=== PATIENT | male | born 1950 | race Caucasian/White ===

== ENCOUNTER 2019-09-30 08:36 | Inpatient (IN) | payer MEDICARE ==
[~2019-09-30] VITALS: Ht 170.2 cm; Wt 118.8 kg
[2019-09-30 09:15] VITALS: BP 104/67
--- NOTE | 2019-09-30 09:31 | NUR ---
IP: Pt's adm dx is C.diff requiring pt to be in contact plus precautions. Stool specimen will need to be sent in first 48 hours for testing.
[2019-09-30] MEDS: IV NORMAL SALINE 1000ML BAG 1,000 ML IV SCH ×3 (10:03→23:40)
[2019-09-30] MEDS: VANCOMYCIN 125 MG/2.5 ML ORAL SOLUTION. PO SCH ×4 (10:40→20:49)
[2019-09-30 10:55] LABS: BASO % 0 % (0-3); EOS # 0.1 x10^3/uL (0.0-0.7); EOS % 1 % (0-3); HEMATOCRIT 37.1 % (39.0-53.0); HEMOGLOBIN 12.6 g/dL (13.0-17.5); LYMPH # 1.9 x10^3/uL (1.0-4.8); LYMPH % 16 % (24-48); MEAN CORPUSCULAR HEMOGLOBIN 31 pg (25-35); MEAN CORPUSCULAR HGB CONC 34 g/dL (31-37); MEAN CORPUSCULAR VOLUME 90 fL (79-100); MONO # 1.5 x10^3/uL (0.0-1.1); MONO % 12 % (0-9); NEUT # 8.7 x10^3/uL (1.8-7.7); NEUT % 71 % (31-73); PLATELET COUNT 305 x10^3/uL (140-400); RED CELL DISTRIBUTION WIDTH 13.5 % (11.5-14.5); WHITE BLOOD COUNT 12.3 x10^3/uL (4.0-11.0)
[2019-09-30 11:10] LABS: ALBUMIN/GLOBULIN RATIO 0.8 (1.0-1.7); CALCIUM 9.3 mg/dL (8.5-10.1); CREATININE 9.1 mg/dL (0.7-1.3); GFR 5.8; TOTAL BILIRUBIN 0.2 mg/dL (0.2-1.0)
[2019-09-30 12:16] LABS: % BANDS 6 % (0-9); % BASOS 1 % (0-3); % EOS 1 % (0-5); % LYMPHS 17 % (24-48); % METAS 2 % (0-0); % MONOS 9 % (0-10); % MYELOS 3 % (0-0); % SEGS 61 % (35-66); PLT ESTIMATE ADEQUATE (ADEQUATE)
--- NOTE | 2019-09-30 12:42 | PDOC1 ---
H & P. HPI: Mr. Meraz is a 69 yo male with PMH of HTN, hx of CVA, CKD stage 3 (baseline Cr ~2.1), h/o iron deficiency anemia, anxiety, who was admitted directly this morning after labs were received that showed Cr of 8.04, GFR 6, BUN 97, Na 132, K 4.4, WBC 15.6, Hgb 12.7, Hct 37.9, with left shift. He was seen in clinic yesterday afternoon for diarrhea for the last few weeks. He reported that he took an antibiotic TID for 10 days (unsure the name) for a dental infection scottie y 09/22 (may have been clindamycin), completed abx over 2 weeks ago. He started having diarrhea a few days into treatment and hasn't improved. Has been having multiple stools a day, often >5-10+ per day. He denied hematochezia, melena. His blood pressure in clinic yesterday was 70/50. We discussed yesterday for direct admission, but pt declined. Given concern for likely Cdiff and severe hypotension, he got labs yesterday and started metronidazole and stopped all blood pressure meds last night with plan to follow up in clinic today, but was called for direct admission once labs were received. ROS: Constitutional: Denies fever, chills; denies fatigue HEENT: Denies sore throat, vision changes Cardio: Denies chest pain, dyspnea with exertion, presyncope, palpitations, edema Pulmonary: Denies shortness of breath, cough, wheezing GI: Admits diarrhea; denies abdominal pain : Denies dysuria, frequency, urgency, incontinence Skin: Denies new lesions Neuro: Denies weakness, paresthesias PMH: As above FAMILY HX: Noncontributory SOCIAL HX: Quit smoking at age 42, smoked ~2 cigars/day age [age], no significant alcohol use or drug use MEDS: Reviewed and reconciled ALLERGIES: Reviewed PE: Alert, oriented, no acute distress, appears weak EOMI, sclera non-icteric Neck supple RRR, no murmur CTAB, no wheezes, crackles or rhonchi Soft, NT, ND No edema, cyanosis. Normal capillary refill. Calm, cooperative, mood/affect within normal limits ASSESSMENT & PLAN: Acute renal failure on CKD stage 3 (baseline ~2.1) 2/2 hypotension Severe Cdiff, pending PCR result to confirm Hypotension, 2/2 volume loss, holding all antihypertensives Anemia, pt has previously refused EGD/Colonoscopy to eval IV fluids Nephro consult to consider dialysis PO Vanc for C diff Contact precautions DNR per pt request TODD EBAN MD Sep 30, 2019 12:42
--- NOTE | 2019-09-30 13:44 | RAD ---
EXAM: Renal cyst. HISTORY: Renal insufficiency. TECHNIQUE: Sonographic imaging of the kidneys and bladder was performed. COMPARISON: None. FINDINGS: The right kidney measures 11.9 cm [id number]. The left kidney measures 11.6 cm [id number]. No hydronephrosis is seen. There are simple appearing renal cysts measuring 8.4 cm of the right and 3.5 cm on the left. No solid renal lesion is seen. There is echogenic right renal parenchyma. The prostate is enlarged, with a volume of 35 cc. The bladder is unremarkable. IMPRESSION: 1. Simple appearing renal cysts measuring 8.4 cm of the right and 3.5 cm on the left. 2. Echogenic right renal parenchymal blood. This may be due to imaging technique or medical renal disease. No solid renal lesion is seen. There is no hydronephrosis. 3. Mild prostatomegaly. Electronically signed by: Cordelia Arellano MD (09/30/2019 1:41 PM) [facility] [place]
[2019-09-30 15:00] VITALS: BP 110/56
[2019-09-30 15:19] LABS: BILIRUBIN,URINE NEGATIVE (NEG); CLARITY,URINE CLEAR; COLOR,URINE YELLOW; NITRITE,URINE NEGATIVE (NEG); PROTEIN,URINE NEGATIVE (NEG-TRACE); UROBILINOGEN,URINE 0.2 mg/dL (0.2 mg/dL)
[2019-09-30 15:32] LABS: SQUAMOUS EPITHELIAL CELL,UR OCC /LPF
[2019-09-30 15:33] LABS: BACTERIA,URINE FEW /HPF (0-FEW); WBC,URINE OCC /HPF (0-4)
[2019-09-30] MEDS ORDERED: LISI-334 PO (16:46)
[2019-09-30] MEDS ORDERED: ISOS60TA2 PO (16:48)
[2019-09-30] MEDS ORDERED: ESCITALOPRAM OX10 MG PO (16:48)
[2019-09-30] MEDS ORDERED: AMLO10TA8 PO (16:49)
[2019-09-30] MEDS ORDERED: SPIR25TA5 PO (16:50)
[2019-09-30] MEDS ORDERED: HYDR25TA10 PO (16:51)
[2019-09-30] MEDS ORDERED: CARV25TA2 PO (16:52)
[2019-09-30 19:30] VITALS: BP 125/68
[2019-09-30 23:55] VITALS: BP 134/69
[2019-10-01 03:51] VITALS: BP 133/92
[2019-10-01 04:57] LABS: BASO # 0.1 x10^3/uL (0.0-0.2); BASO % 0 % (0-3); EOS # 0.1 x10^3/uL (0.0-0.7); EOS % 1 % (0-3); HEMATOCRIT 35.9 % (39.0-53.0); HEMOGLOBIN 12.2 g/dL (13.0-17.5); LYMPH # 1.4 x10^3/uL (1.0-4.8); LYMPH % 10 % (24-48); MEAN CORPUSCULAR HEMOGLOBIN 31 pg (25-35); MEAN CORPUSCULAR HGB CONC 34 g/dL (31-37); MEAN CORPUSCULAR VOLUME 91 fL (79-100); MONO # 1.1 x10^3/uL (0.0-1.1); MONO % 8 % (0-9); NEUT # 11.3 x10^3/uL (1.8-7.7); NEUT % 81 % (31-73); PLATELET COUNT 319 x10^3/uL (140-400); RED BLOOD COUNT 3.96 x10^6/uL (4.30-5.70); RED CELL DISTRIBUTION WIDTH 13.8 % (11.5-14.5)
[2019-10-01 05:32] LABS: ALBUMIN/GLOBULIN RATIO 0.8 (1.0-1.7); CREATININE 5.7 mg/dL (0.7-1.3); POTASSIUM 4.4 mmol/L (3.5-5.1); TOTAL BILIRUBIN 0.2 mg/dL (0.2-1.0); TOTAL PROTEIN 6.8 g/dL (6.4-8.2)
[2019-10-01 07:15] VITALS: BP 136/65
[2019-10-01] MEDS: VANCOMYCIN 125 MG/2.5 ML ORAL SOLUTION. PO SCH ×4 (08:19→21:52)
[2019-10-01] MEDS: IV NORMAL SALINE 1000ML BAG 1,000 ML IV SCH ×2 (08:19→17:38)
--- NOTE | 2019-10-01 09:16 | PDOC ---
Provider Note Provider Note bp better re iv saline, diarrhea less on vanco- better output- creat down to 5.7, last baseline 2.4 08/21- renal sono ok- renal consult pending as may need temp dialysis- daily lab MARIKA FAYE MD Oct 01, 2019 09:16
[2019-10-01 10:53] VITALS: BP 131/71
--- NOTE | 2019-10-01 11:03 | PDOC2 ---
CONSULT Date of Consult Date of Consult DATE: 10/01/19 TIME: 10:57 Reason for Consult Reason for Consult: YUKI Referring Physician Referring Physician: TRUSTY Identification/Chief Complaint Chief Complaint WEAKNESS AND DIARRHEA Source Source: Chart review, Patient History of Present Illness Reason for Visit: THIS IS A 69 YR OLD WITH CKD AND BASELINE CR OF 2.0. HAS HX OF HTN. HAS BEEN HAVING SOME SEVERE DIARRHEA FOR COUPLE WEEKS AFTER TAKING SOME ANTIBIOTICS POST DENTAL PROCEDURE. OP LABS SHOWED YUKI WITH CR OF 8.0 AND LEUCOCYTOSIS AND PT WAS ASKED TO COME TO THE HOSPITAL. LABS HERE SHOWED A CR OF 9.0. DENIED ANY NSAIDS OF NEPHROTOXINS. NO OTHER HX. HAS HAD HYPOTENSION IN THE OP SETTING WITH BP OF 70/50. NOTE FROM ATTENDING REVIEWED. Mr. Meraz is a 69 yo male with PMH of HTN, hx of CVA, CKD stage 3 (baseline Cr ~2.1), h/o iron deficiency anemia, anxiety, who was admitted directly this morning after labs were received that showed Cr of 8.04, GFR 6, BUN 97, Na 132, K 4.4, WBC 15.6, Hgb 12.7, Hct 37.9, with left shift. He was seen in clinic yesterday afternoon for diarrhea for the last few weeks. He reported that he took an antibiotic TID for 10 days (unsure the name) for a dental infection early 09/22 (may have been clindamycin), completed abx over 2 weeks ago. He started having diarrhea a few days into treatment and hasn't improved. Has been having multiple stools a day, often >5-10+ per day. He denied hematochezia, melena. His blood pressure in clinic yesterday was 70/50. We discussed yesterday for direct admission, but pt declined. Given concern for likely Cdiff and severe hypotension, he got labs yesterday and started metronidazole and stopped all blood pressure meds last night with plan to follow up in clinic today, but was called for direct admission once labs were received. Past Medical History Cardiovascular: HTN CENTRAL NERVOUS SYSTEM: CVA Renal/: Chronic renal insuff Family History Family History: Hypertension Social History No ALCOHOL: none Drugs: None Lives: with Family Current Medications Current Medications Current Medications Sodium Chloride 1,000 ml @ 100 mls/hr Q10H IV Last administered on 10/01/19at 08:19; Start 09/30/19 at 10:00 Vancomycin HCl (Vancomycin Oral Solution) 125 mg [id number] PO Last administered on 10/01/19at 08:19; Start 09/30/19 at 10:00 Active Scripts Active Reported Carvedilol 25 Mg Tablet 25 Mg PO BIDWMEALS PRN Hydrochlorothiazide 25 Mg Tablet 25 Mg PO DAILY Spironolactone 25 Mg Tablet 1 Tab PO DAILY Amlodipine Besylate 10 Mg Tablet 10 Mg PO DAILY Escitalopram Oxalate 10 Mg Tablet 1 Tab PO DAILY Isosorbide Mononitrate Er (Isosorbide Mononitrate) 60 Mg Tab.er.24h 2 Tab PO DAILY Lisinopril 20 Mg Tablet 1 Tab PO DAILY Allergies Allergies: Coded Allergies: Penicillins (Verified Allergy, Unknown, Hives, 09/30/19) ROS General: YES: Fatigue, Malaise, Appetite PSYCHOLOGICAL ROS: YES: Anxiety Eyes: Yes Decreased vision HEENT: YES: Heacaches ALLERGY AND IMMUNOLOGY: YES: Seasonal Allergies Respiratory: YES: Cough Gastrointestinal: Yes Diarrhea Genitourinary: YES Other (DECREASED UO) Musculoskeletal: Yes Muscular Weakness Neurological: Yes Dizziness Skin: Yes Dry Skin Physical Exam General: Alert, Oriented X3, Cooperative, No acute distress HEENT: Atraumatic Lungs: Clear to auscultation Heart: Regular rate, Normal S1, No murmurs Abdomen: Normal bowel sounds, Soft, No tenderness Extremities: No edema Skin: No breakdown Neuro: Normal speech, Sensation intact Psych/Mental Status: Mental status NL, Mood NL MUSCULOSKELETAL: No joint tenderness, No deformity, No swelling Vitals VITALS Vital Signs Date Time Temp Pulse Resp B/P (MAP) Pulse Ox O2 Delivery O2 Flow Rate FiO2 10/01/19 10:53 98.5 74 20 131/71 (91) 98 Room Air 98.5 Labs Labs Laboratory Tests Test 09/30/19 10:23 09/30/19 15:00 10/01/19 04:00 White Blood Count 12.3 x10^3/uL (4.0-11.0) 14.0 x10^3/uL (4.0-11.0) Red Blood Count 4.10 x10^6/uL (4.30-5.70) 3.96 x10^6/uL (4.30-5.70) Hemoglobin 12.6 g/dL (13.0-17.5) 12.2 g/dL (13.0-17.5) Hematocrit 37.1 % (39.0-53.0) 35.9 % (39.0-53.0) Mean Corpuscular Volume 90 fL (79-100) 91 fL (79-100) Mean Corpuscular Hemoglobin 31 pg (25-35) 31 pg (25-35) Mean Corpuscular Hemoglobin Concent 34 g/dL (31-37) 34 g/dL (31-37) Red Cell Distribution Width 13.5 % (11.5-14.5) 13.8 % (11.5-14.5) Platelet Count 305 x10^3/uL (140-400) 319 x10^3/uL (140-400) Neutrophils (%) (Auto) 71 % (31-73) 81 % (31-73) Lymphocytes (%) (Auto) 16 % (24-48) 10 % (24-48) Monocytes (%) (Auto) 12 % (0-9) 8 % (0-9) Eosinophils (%) (Auto) 1 % (0-3) 1 % (0-3) Basophils (%) (Auto) 0 % (0-3) 0 % (0-3) Neutrophils # (Auto) 8.7 x10^3/uL (1.8-7.7) 11.3 x10^3/uL (1.8-7.7) Lymphocytes # (Auto) 1.9 x10^3/uL (1.0-4.8) 1.4 x10^3/uL (1.0-4.8) Monocytes # (Auto) 1.5 x10^3/uL (0.0-1.1) 1.1 x10^3/uL (0.0-1.1) Eosinophils # (Auto) 0.1 x10^3/uL (0.0-0.7) 0.1 x10^3/uL (0.0-0.7) Basophils # (Auto) 0.0 x10^3/uL (0.0-0.2) 0.1 x10^3/uL (0.0-0.2) Segmented Neutrophils % 61 % (35-66) Band Neutrophils % 6 % (0-9) Lymphocytes % 17 % (24-48) Monocytes % 9 % (0-10) Eosinophils % 1 % (0-5) Basophils % 1 % (0-3) Metamyelocytes % 2 % (0-0) Myelocytes % 3 % (0-0) Platelet Estimate Adequate (ADEQUATE) Erythrocyte Sedimentation Rate 65 (0-15) Sodium Level 135 mmol/L (136-145) 138 mmol/L (136-145) Potassium Level 4.0 mmol/L (3.5-5.1) 4.4 mmol/L (3.5-5.1) Chloride Level 96 mmol/L (98-107) 100 mmol/L (98-107) Carbon Dioxide Level 23 mmol/L (21-32) 23 mmol/L (21-32) Anion Gap 16 (6-14) 15 (6-14) Blood Urea Nitrogen 110 mg/dL (8-26) 96 mg/dL (8-26) Creatinine 9.1 mg/dL (0.7-1.3) 5.7 mg/dL (0.7-1.3) Estimated GFR (Cockcroft-Gault) 5.8 10.0 BUN/Creatinine Ratio 12 (6-20) 17 (6-20) Glucose Level 125 mg/dL (70-99) 108 mg/dL (70-99) Calcium Level 9.3 mg/dL (8.5-10.1) 9.0 mg/dL (8.5-10.1) Total Bilirubin 0.2 mg/dL (0.2-1.0) 0.2 mg/dL (0.2-1.0) Aspartate Amino Transf (AST/SGOT) 8 U/L (15-37) 10 U/L (15-37) Alanine Aminotransferase (ALT/SGPT) 10 U/L (16-63) 10 U/L (16-63) Alkaline Phosphatase 54 U/L (46-116) 58 U/L (46-116) C-Reactive Protein, Quantitative 51.0 mg/L (0-3.3) Total Protein 7.0 g/dL (6.4-8.2) 6.8 g/dL (6.4-8.2) Albumin 3.0 g/dL (3.4-5.0) 3.0 g/dL (3.4-5.0) Albumin/Globulin Ratio 0.8 (1.0-1.7) 0.8 (1.0-1.7) Urine Collection Type Void Urine Color Yellow Urine Clarity Clear Urine pH 5.0 Urine Specific Victoria 1.015 Urine Protein Negative mg/dL (NEG-TRACE) Urine Glucose (UA) Negative mg/dL (NEG) Urine Ketones (Stick) Negative mg/dL (NEG) Urine Blood Trace (NEG) Urine Nitrite Negative (NEG) Urine Bilirubin Negative (NEG) Urine Urobilinogen Dipstick 0.2 mg/dL (0.2 mg/dL) Urine Leukocyte Esterase Negative (NEG) Urine RBC 1-2 /HPF (0-2) Urine WBC Occ /HPF (0-4) Urine Squamous Epithelial Cells Occ /LPF Urine Renal Epithelial Cells Occ /LPF Urine Bacteria Few /HPF (0-FEW) Urine Mucus Slight /LPF Laboratory Tests Test 09/30/19 15:00 10/01/19 04:00 Urine Collection Type Void Urine Color Yellow Urine Clarity Clear Urine pH 5.0 Urine Specific Victoria 1.015 Urine Protein Negative mg/dL (NEG-TRACE) Urine Glucose (UA) Negative mg/dL (NEG) Urine Ketones (Stick) Negative mg/dL (NEG) Urine Blood Trace (NEG) Urine Nitrite Negative (NEG) Urine Bilirubin Negative (NEG) Urine Urobilinogen Dipstick 0.2 mg/dL (0.2 mg/dL) Urine Leukocyte Esterase Negative (NEG) Urine RBC 1-2 /HPF (0-2) Urine WBC Occ /HPF (0-4) Urine Squamous Epithelial Cells Occ /LPF Urine Renal Epithelial Cells Occ /LPF Urine Bacteria Few /HPF (0-FEW) Urine Mucus Slight /LPF White Blood Count 14.0 x10^3/uL (4.0-11.0) Red Blood Count 3.96 x10^6/uL (4.30-5.70) Hemoglobin 12.2 g/dL (13.0-17.5) Hematocrit 35.9 % (39.0-53.0) Mean Corpuscular Volume 91 fL (79-100) Mean Corpuscular Hemoglobin 31 pg (25-35) Mean Corpuscular Hemoglobin Concent 34 g/dL (31-37) Red Cell Distribution Width 13.8 % (11.5-14.5) Platelet Count 319 x10^3/uL (140-400) Neutrophils (%) (Auto) 81 % (31-73) Lymphocytes (%) (Auto) 10 % (24-48) Monocytes (%) (Auto) 8 % (0-9) Eosinophils (%) (Auto) 1 % (0-3) Basophils (%) (Auto) 0 % (0-3) Neutrophils # (Auto) 11.3 x10^3/uL (1.8-7.7) Lymphocytes # (Auto) 1.4 x10^3/uL (1.0-4.8) Monocytes # (Auto) 1.1 x10^3/uL (0.0-1.1) Eosinophils # (Auto) 0.1 x10^3/uL (0.0-0.7) Basophils # (Auto) 0.1 x10^3/uL (0.0-0.2) Sodium Level 138 mmol/L (136-145) Potassium Level 4.4 mmol/L (3.5-5.1) Chloride Level 100 mmol/L (98-107) Carbon Dioxide Level 23 mmol/L (21-32) Anion Gap 15 (6-14) Blood Urea Nitrogen 96 mg/dL (8-26) Creatinine 5.7 mg/dL (0.7-1.3) Estimated GFR (Cockcroft-Gault) 10.0 BUN/Creatinine Ratio 17 (6-20) Glucose Level 108 mg/dL (70-99) Calcium Level 9.0 mg/dL (8.5-10.1) Total Bilirubin 0.2 mg/dL (0.2-1.0) Aspartate Amino Transf (AST/SGOT) 10 U/L (15-37) Alanine Aminotransferase (ALT/SGPT) 10 U/L (16-63) Alkaline Phosphatase 58 U/L (46-116) Total Protein 6.8 g/dL (6.4-8.2) Albumin 3.0 g/dL (3.4-5.0) Albumin/Globulin Ratio 0.8 (1.0-1.7) Assessment/Plan Assessment/Plan IMP SEVERE DEHYDRATION DIARRHA YUKI-ATN WITH CR OF 9.0 CKD STAGE 3 WITH CR OF 2.0 HX OF HTN HYPOTENSION PLAN HYDRATE WITH ISOTONIC SALINE DO NOT ANTICIPATE NEED FOR HD RENAL SONOGRAM HOLD DIURETICS AND RICHELLE-I WILL FOLLOW MARKOS MATHEWS MD Oct 01, 2019 11:03
--- NOTE | 2019-10-01 13:21 | NUR ---
SS following for discharge planning. SS reviewed pt chart. Pt is from home and is currently on room air. SS will continue to follow for discharge planning.
[2019-10-01 14:57] VITALS: BP 118/68
[2019-10-01] MEDS ORDERED: FAMOTIDINE 20 MG TABLET. PO ONE (18:15)
[2019-10-01 19:50] VITALS: BP 126/76
[2019-10-01 23:51] VITALS: BP 145/47
[2019-10-02] VITALS (7 sets, daily range): BP systolic 136–169; BP diastolic 56–98
[2019-10-02 05:12] LABS: MAGNESIUM 1.9 mg/dL (1.8-2.4); PHOSPHORUS 4.6 mg/dL (2.6-4.7); POTASSIUM 4.7 mmol/L (3.5-5.1)
--- NOTE | 2019-10-02 08:46 | PDOC ---
Provider Note Provider Note creat further better, good output- vss- will cont iv fluid another day, poss dc if creat < 2.5 or so- cont po vanco for c MARIKA Do MD Oct 02, 2019 08:46
[2019-10-02] MEDS: VANCOMYCIN 125 MG/2.5 ML ORAL SOLUTION. PO SCH ×4 (09:36→21:41)
[2019-10-02] MEDS: FAMOTIDINE 20 MG TABLET. PO SCH (09:36)
--- NOTE | 2019-10-02 11:25 | PDOC ---
SUBJECTIVE ROS No complaints this am OBJECTIVE Vital Signs Vital Signs Date Time Temp Pulse Resp B/P (MAP) Pulse Ox O2 Delivery O2 Flow Rate FiO2 10/02/19 11:07 98.4 71 20 169/90 (116) 97 Room Air 98.4 I & 0 Intake and Output 10/02/19 07:00 Intake Total 1950 ml Output Total 2050 ml Balance -100 ml Intake Oral 1950 ml Output Urine Total 2050 ml PHYSICAL EXAM Physical Exam GEN: Awake, Oriented x [], In [] distress EYES: Vision Unchanged, Conjunctiva Normal EN: No EN Drainage, Mucous Membranes [] NECK: [] JVD, [] JVP, Supple, [] Thyromegaly CVS: S1S2, [] Murmur, No Gallop, No Rub,[] Edema RESP: [] Rales, [] Rhonchi,[] Acc. Muscle Use GI: BS + ve, NO Bruit, Non Tender, Non Distended : [] CVA tenderness, [] Suprapubic Tenderness DIAGNOSIS/ASSESSMENT Assessment & Plan SEVERE DEHYDRATION DIARRHEA YUKI-ATN WITH CR OF 9.0-- Improving 3.0 this am , daily BMP CKD STAGE 3 WITH CR OF 2.0 HX OF HTN HYPOTENSION- RESOLVED PLAN IMPROVED WITH HYDRATION - dc ivf IF GOOD PO Intake RENAL SONOGRAM-1. Simple appearing renal cysts measuring 8.4 cm of the right and 3.5 cm on the left. 2. Echogenic right renal parenchymal blood. This may be due to imaging technique or medical renal disease. No solid renal lesion is seen. There is no hydronephrosis. 3. Mild prostatomegaly. DIURETICS AND RICHELLE-I HELD COMMENT/RELEVANT DATA Meds Current Medications Medications (Trade) Dose Ordered Sig/Thelma Start Time Stop Time Status Last Admin Dose Admin Famotidine (Pepcid) 20 mg DAILY 10/02/19 09:00 10/02/19 09:36 20 MG Sodium Chloride 1,000 ml @ 75 mls/hr [id number] 09/30/19 10:00 10/01/19 17:38 100 MLS/HR Vancomycin HCl (Vancomycin Oral Solution) 125 mg [id number] 09/30/19 10:00 10/02/19 09:36 125 MG Lab Laboratory Tests Test 10/02/19 04:10 Sodium Level 140 mmol/L (136-145) Potassium Level 4.7 mmol/L (3.5-5.1) Chloride Level 106 mmol/L (98-107) Carbon Dioxide Level 21 mmol/L (21-32) Anion Gap 13 (6-14) Blood Urea Nitrogen 74 mg/dL (8-26) Creatinine 3.0 mg/dL (0.7-1.3) Estimated GFR (Cockcroft-Gault) 21.0 Glucose Level 92 mg/dL (70-99) Calcium Level 9.0 mg/dL (8.5-10.1) Phosphorus Level 4.6 mg/dL (2.6-4.7) Magnesium Level 1.9 mg/dL (1.8-2.4) Results All relevant outside records, renal labs, imaging studies, telemetry/EKG's were reviewed. NEGRITA MUNOZ MD Oct 02, 2019 11:24
[2019-10-02] MEDS: IV NORMAL SALINE 1000ML BAG 1,000 ML IV SCH ×2 (17:50→21:12)
[2019-10-02] MEDS: LACTOBACILLUS RHAMNOSUS GG 1 CAPSULE. PO SCH (21:41)
[2019-10-03 03:00] VITALS: BP 145/69
[2019-10-03 07:00] VITALS: BP 159/92
[2019-10-03 08:48] LABS: CALCIUM 9.1 mg/dL (8.5-10.1); CREATININE 2.3 mg/dL (0.7-1.3); GFR 28.5; POTASSIUM 5.1 mmol/L (3.5-5.1)
[2019-10-03] MEDS: LACTOBACILLUS RHAMNOSUS GG 1 CAPSULE. PO SCH (09:14)
[2019-10-03] MEDS: VANCOMYCIN 125 MG/2.5 ML ORAL SOLUTION. PO SCH (09:14)
[2019-10-03] MEDS: FAMOTIDINE 20 MG TABLET. PO SCH (09:14)
--- NOTE | 2019-10-03 10:02 | PDOC ---
Provider Note Provider Note [id number] MARIKA FYAE MD Oct 03, 2019 10:02
--- NOTE | 2019-10-03 10:12 | DS ---
DATE OF DISCHARGE: 10/03/2019 DATE OF DISCHARGE: 10/03/2019 HOSPITAL SUMMARY: This is a 69-year-old white male, recently discovered to have acute renal failure and C. diff colitis, who came in with a creatinine of 9 as an outpatient and BUN 110 but potassium normal and no sign of acidosis. He had a mild leukocytosis, otherwise unremarkable white count. Repeat C. diff test in the hospital was positive as well. Urinalysis was clear. Renal sonogram showed no hydronephrosis or obstructive changes. Creatinine came down aggressively to 2.3 with hydration, BUN from 110 to 49, and potassium remained the same. He is feeling much better and able to be followed as an outpatient. FINAL DIAGNOSES: 1. Acute renal failure secondary to dehydration from Clostridium difficile colitis. 2. Clostridium difficile colitis. 3. Chronic kidney disease, stage 3/4, preexisting. 4. Hypertension. OPERATIONS, PROCEDURES, AND COMPLICATIONS: None. CONSULTATION: Dr. Corona. DISPOSITION: He will stay off of spironolactone, hydrochlorothiazide, and lisinopril as an outpatient and resume his carvedilol, Imdur, and amlodipine. He will take 6 more days of vancomycin 125 mg 4 times a day to finish his C. diff treatment. We will follow him up in 1 week with blood pressure and repeat BMP to follow his renal function to find his new baseline. Good fluid intake. Activity as tolerated. No further antibiotics for as long as possible. MARIKA FAYE MD DR: MAUDE/nts JOB#: [id number] / [id number]
--- NOTE | 2019-10-03 10:55 | NUR ---
Discharge Note: [facility] Discharge instructions and discharge home medications reviewed with Patient and a copy given. All questions have been answered and understanding verbalized. The following instructions and handouts were given: discharge instructions, new prescriptions, education and follow up recommendations. Discontinued lines and drains: Peripheral IV discontinued intact. Patient discharged to Home or Self Care with Self via Ambulated off unit by RN.
== END 2019-10-03 10:57 | disposition home or self-care (01) | DRG 371 ==
LOC: 6 SOUTH 08:36 → 5 SOUTH 10-02 19:50
PROVIDERS: ADMIT Family Medicine; ATTEND Family Medicine
DX: A04.72 Enterocolitis due to Clostridium difficile, not specified as recurrent (principal); N17.0 Acute kidney failure with tubular necrosis; N18.4 Chronic kidney disease, stage 4 (severe); E86.0 Dehydration; I12.9 Hypertensive chronic kidney disease with stage 1 through stage 4 chronic kidney disease, or unspecified chronic kidney disease; Z82.49 Family history of ischemic heart disease and other diseases of the circulatory system; Z86.73 Personal history of transient ischemic attack (TIA), and cerebral infarction without residual deficits; F41.9 Anxiety disorder, unspecified; I95.9 Hypotension, unspecified
CPT/HCPCS: 36415; 76770; 80048; 80053; 81001; 83735; 84100; 85007; 85025; 85651; 86140; 87493; J7030; G0378

== ENCOUNTER 2019-11-04 18:04 | Emergency (ER) | payer MEDICARE ==
[~2019-11-04 18:04] MED LIST: AMLO10TA8 PO; CARV25TA2 PO; ESCITALOPRAM OX10 MG PO; HYDR25TA10 PO; ISOS60TA2 PO; LISI-334 PO; SPIR25TA5 PO
== END 2019-11-04 18:33 | disposition left against medical advice (07) ==
LOC: ER 18:04
DX: K08.89 Other specified disorders of teeth and supporting structures (principal); Z53.21 Procedure and treatment not carried out due to patient leaving prior to being seen by health care provider

== ENCOUNTER 2021-06-10 10:38 | Inpatient (IN) | payer MEDICARE ==
[~2021-06-10] VITALS: Ht 170.2 cm; Wt 113.6 kg
[~2021-06-10 10:38] MED LIST changes: +AMLO-187 PO; -AMLO10TA8 PO; -ISOS60TA2 PO; +ISOS60TA55 PO; -LISI-334 PO; +LISI20TA18 PO
--- NOTE | 2021-06-10 11:08 | PHYS DOC ---
Past Medical History Past Medical History hernia Past Surgical History: No Surgical History Smoking Status: Former Smoker Alcohol Use: None Drug Use: None General Adult EDM: Chief Complaint: ABDOMINAL PAIN HPI: HPI: 71-year-old male with longstanding history of umbilical hernia presents to the emergency department complaining of abdominal pain around his umbilical hernia site for the last 3 days with gradual onset. His pain is also associated with several episodes of fluid-filled vomiting without blood. He denies any acute stool change. He states that he usually is able to self reduce his hernia but he has not been able to reduce the hernia at home. Abdominal pain feels dull, nonradiating from the abdominal hernia site, not made better or worse by anything. He states he has a lack of appetite over the last several days but is able to drink water. The patient denies fever, chills, chest pain, shortness of breath, urinary symptoms, cough, recent trauma, or any other complaints. Review of Systems: Review of Systems: ROS otherwise negative except for what was mentioned in HPI Heart Score: C/O Chest Pain: No Family History: Family History: non contributory Allergies: Allergies: Allergies Coded Allergies Type Severity Reaction Last Updated Verified Penicillins Allergy Intermediate Hives 10/01/19 Yes Physical Exam: PE: Constitutional: No acute distress, non-toxic appearance. HENT: Atraumatic, bilateral external ears normal, nose normal. Eyes: PERRLA, EOMI, conjunctiva normal, no discharge. Neck: Normal range of motion, supple, no stridor. Cardiovascular: Heart rate regular rhythm. 2+ radial pulses Lungs & Thorax: No respiratory distress, symmetrical expansion. Abdomen: Soft, umbilical hernia is noted, hernia is nonreducible at the bedside, there is tenderness around the hernia, no overlying skin changes. Skin: Warm, dry. Extremities: No tenderness, no cyanosis, ROM intact, no edema. Neurologic: Alert and oriented X 3, normal motor function, normal sensory function, no focal deficits noted. Non ataxic gait. GCS 15. Psychologic: Affect normal, judgment normal, mood normal. Current Patient Data: Labs: Laboratory Tests Test 06/10/21 11:16 White Blood Count 14.7 x10^3/uL (4.0-11.0) Red Blood Count 5.39 x10^6/uL (4.30-5.70) Hemoglobin 14.4 g/dL (13.0-17.5) Hematocrit 43.7 % (39.0-53.0) Mean Corpuscular Volume 81 fL (79-100) Mean Corpuscular Hemoglobin 27 pg (25-35) Mean Corpuscular Hemoglobin Concent 33 g/dL (31-37) Red Cell Distribution Width 15.9 % (11.5-14.5) Platelet Count 360 x10^3/uL (140-400) Neutrophils (%) (Auto) 85 % (31-73) Lymphocytes (%) (Auto) 8 % (24-48) Monocytes (%) (Auto) 7 % (0-9) Eosinophils (%) (Auto) 0 % (0-3) Basophils (%) (Auto) 1 % (0-3) Neutrophils # (Auto) 12.5 x10^3/uL (1.8-7.7) Lymphocytes # (Auto) 1.1 x10^3/uL (1.0-4.8) Monocytes # (Auto) 1.0 x10^3/uL (0.0-1.1) Eosinophils # (Auto) 0.0 x10^3/uL (0.0-0.7) Basophils # (Auto) 0.1 x10^3/uL (0.0-0.2) Sodium Level 140 mmol/L (136-145) Potassium Level 3.9 mmol/L (3.5-5.1) Chloride Level 100 mmol/L (98-107) Carbon Dioxide Level 31 mmol/L (21-32) Anion Gap 9 (6-14) Blood Urea Nitrogen 27 mg/dL (8-26) Creatinine 2.1 mg/dL (0.7-1.3) Estimated GFR (Cockcroft-Gault) 31.5 BUN/Creatinine Ratio 13 (6-20) Glucose Level 164 mg/dL (70-99) Calcium Level 9.8 mg/dL (8.5-10.1) Total Bilirubin 1.4 mg/dL (0.2-1.0) Aspartate Amino Transf (AST/SGOT) 24 U/L (15-37) Alanine Aminotransferase (ALT/SGPT) 30 U/L (16-63) Alkaline Phosphatase 79 U/L (46-116) Total Protein 8.6 g/dL (6.4-8.2) Albumin 3.9 g/dL (3.4-5.0) Albumin/Globulin Ratio 0.8 (1.0-1.7) Lipase 213 U/L (73-393) Vital Signs: Vital Signs Date Time Temp Pulse Resp B/P (MAP) Pulse Ox O2 Delivery O2 Flow Rate FiO2 06/10/21 13:27 84 17 157/92 (113) 96 Room Air 06/10/21 12:57 92 19 169/98 (121) 96 Room Air 06/10/21 12:27 159/102 (121) Room Air 06/10/21 11:57 80 17 147/94 (111) 95 Room Air 06/10/21 11:44 96 14 149/99 (116) 96 06/10/21 11:27 94 15 201/112 (141) 96 Room Air 06/10/21 10:53 97.9 105 20 197/111 (139) 98 Room Air 97.9 EKG: EKG: Time read: 1110 Normal sinus rhythm rate of 99, no ST-T wave changes, no ectopic beats, normal axis, normal GA, QRS, and QTc intervals. Impression: Normal EKG. interpreted by Johnson thompson D.O. Radiology/Procedures: Radiology/Procedures: PROCEDURE: CT ABD PEL W/ORAL CONTRST ONLY EXAM: CT ABDOMEN/PELVIS WITH CONTRAST. HISTORY: Nonreducible umbilical hernia. TECHNIQUE: Computed tomography of the abdomen and pelvis was performed after the intravenous administration of iodinated contrast. One or more of the following individualized dose reduction techniques were utilized for this examination: 1. Automated exposure control. 2. Adjustment of the mA and/or kV according to patient size. 3. Use of iterative reconstruction technique. COMPARISON: 09/22/2019. FINDINGS: Lung windows through the visualized portions of the bases reveal a calcified granuloma in the right middle lobe. A small umbilical hernia contains mostly fat. Bone windows reveal no suspicious lesions. Hypoattenuation of the hepatic rectum indicates moderate diffuse hepatic steat osis. A hypoattenuating lesion in segment 7 is consistent with a cyst and measures 1.7 cm. Gallstones are noted. A cyst in the right kidney measures 8.8 cm and contains a thin calcified septation laterally. There are small peripelvic cysts in the left kidney. The spleen is unremarkable. A moderate umbilical hernia contains a small bowel loop. The associated mesentery is edematous, consistent with vascular compromise. The upstream small bowel loops are mildly distended consistent with small bowel obstruction. The distal small bowel is decompressed. There are no pathologically enlarged lymph nodes. The appendix is not inflamed. IMPRESSION: 1. Moderate umbilical hernia containing a nonobstructed, edematous small bowel loop. Ongoing management is recommended. 2. An 8.8 cm right renal cyst contains a thin calcified septation. There is no clear solid component. 3. Cholelithiasis. 4. Moderate diffuse hepatic steatosis. 5. Small hiatal hernia containing fat. Electronically signed by: Jarrod Mao MD (06/10/2021 1:16 PM) Course & Med Decision Making: Course & Med Decision Making I discussed the case with Dr. Nieto from general surgery who believes this is likely an SBO, recommends inpatient admission with upcoming surgery to repair issue with hernia. Patient was made n.p.o., he is amenable to this plan. Covid test pending. CT scan with contrast was withheld secondary to patient's renal function. patient was admitted to Dr. Zheng in stable condition Departure Departure Impression: Primary Impression: Small bowel obstruction Disposition: ADMITTED INPATIENT Admitting Physician: Todd hZeng Condition: STABLE Referrals: TODD ZHENG MD (PCP) JOHNSON BONILLA DO Jun 10, 2021 11:08
[2021-06-10] MEDS ORDERED: fentaNYL PF VIAL 100 MCG/2 ML VIAL IVP ONE (11:15)
[2021-06-10] MEDS ORDERED: IV RINGERS,LACTATED 1000ML 1,000 ML IV SCH ×2 (11:15→14:15)
[2021-06-10 11:31] LABS: BASO # 0.1 x10^3/uL (0.0-0.2); BASO % 1 % (0-3); EOS % 0 % (0-3); HEMATOCRIT 43.7 % (39.0-53.0); HEMOGLOBIN 14.4 g/dL (13.0-17.5); LYMPH # 1.1 x10^3/uL (1.0-4.8); LYMPH % 8 % (24-48); MEAN CORPUSCULAR HEMOGLOBIN 27 pg (25-35); MEAN CORPUSCULAR HGB CONC 33 g/dL (31-37); MEAN CORPUSCULAR VOLUME 81 fL (79-100); MONO % 7 % (0-9); NEUT # 12.5 x10^3/uL (1.8-7.7); NEUT % 85 % (31-73); PLATELET COUNT 360 x10^3/uL (140-400); RED BLOOD COUNT 5.39 x10^6/uL (4.30-5.70); RED CELL DISTRIBUTION WIDTH 15.9 % (11.5-14.5); WHITE BLOOD COUNT 14.7 x10^3/uL (4.0-11.0)
[2021-06-10 11:35] LABS: CALCIUM 9.8 mg/dL (8.5-10.1); CREATININE 2.1 mg/dL (0.7-1.3); GFR 31.5; POTASSIUM 3.9 mmol/L (3.5-5.1)
[2021-06-10 11:41] LABS: ALBUMIN 3.9 g/dL (3.4-5.0); ALBUMIN/GLOBULIN RATIO 0.8 (1.0-1.7); TOTAL BILIRUBIN 1.4 mg/dL (0.2-1.0); TOTAL PROTEIN 8.6 g/dL (6.4-8.2)
[2021-06-10] MEDS ORDERED: CONTRAST GIVEN. MC PRN (12:00)
[2021-06-10] MEDS ORDERED: IOHEXOL 240 MG/ML 50ML VIAL. PO ONE (12:00)
--- NOTE | 2021-06-10 13:19 | RAD ---
EXAM: CT ABDOMEN/PELVIS WITH CONTRAST. HISTORY: Nonreducible umbilical hernia. TECHNIQUE: Computed tomography of the abdomen and pelvis was performed after the intravenous administ ration of iodinated contrast. One or more of the following individualized dose reduction techniques w ere utilized for this examination: 1. Automated exposure control. 2. Adjustment of the mA and/or kV according to patient size. 3. Use of iterative reconstruction technique. COMPARISON: 09/22/2019. FINDINGS: Lung windows through the visualized portions of the bases reveal a calcified granuloma in t he right middle lobe. A small umbilical hernia contains mostly fat. Bone windows reveal no suspicious lesions. Hypoattenuation of the hepatic rectum indicates moderate diffuse hepatic steatosis. A hypoattenuating lesion in segment 7 is consistent with a cyst and measures 1.7 cm. Gallstones are noted. A cyst in t he right kidney measures 8.8 cm and contains a thin calcified septation laterally. There are small pe ripelvic cysts in the left kidney. The spleen is unremarkable. A moderate umbilical hernia contains a small bowel loop. The associated mesentery is edematous, consi stent with vascular compromise. The upstream small bowel loops are mildly distended consistent with s mall bowel obstruction. The distal small bowel is decompressed. There are no pathologically enlarged lymph nodes. The appendix is not inflamed. IMPRESSION: 1. Moderate umbilical hernia containing a nonobstructed, edematous small bowel loop. Ongoing manageme nt is recommended. 2. An 8.8 cm right renal cyst contains a thin calcified septation. There is no clear solid component. 3. Cholelithiasis. 4. Moderate diffuse hepatic steatosis. 5. Small hiatal hernia containing fat. Electronically signed by: Jarrod Mao MD (06/10/2021 1:16 PM) [id number]
[2021-06-10 14:02] LABS: BILIRUBIN,URINE SMALL (NEG); CLARITY,URINE CLEAR; COLOR,URINE AMBER; NITRITE,URINE NEGATIVE (NEG); PH,URINE 5.5 (<5.0-8.0); PROTEIN,URINE 100 mg/dL (NEG-TRACE); UROBILINOGEN,URINE 0.2 mg/dL (0.2 mg/dL)
[2021-06-10] MEDS ORDERED: MORPHINE SULFATE 2 MG/ML INJ. IVP PRN (14:15)
[2021-06-10] MEDS ORDERED: MORPHINE SULFATE 4 MG/ML INJ. IVP PRN (14:15)
[2021-06-10] MEDS ORDERED: HYDROmorphone 2 MG/ML VIAL IVP PRN (14:15)
[2021-06-10] MEDS ORDERED: fentaNYL PF VIAL 100 MCG/2 ML VIAL IVP PRN ×2 (14:15)
[2021-06-10] MEDS ORDERED: ONDANSETRON PF 4 MG/2 ML VIAL. IVP PRN ×2 (14:15→16:45)
[2021-06-10] MEDS ORDERED: PROCHLORPERAZINE 10 MG/2 ML VIAL. IVP PRN (14:15)
[2021-06-10 14:27] LABS: HYALINE CASTS, URINE MANY /HPF
[2021-06-10 14:29] LABS: BACTERIA,URINE 0 /HPF (0-FEW)
[2021-06-10] MEDS ORDERED: NEOSTIGMINE METHYLSULFATE 5 MG/5 ML SYRINGE. ONE (14:44)
[2021-06-10] MEDS ORDERED: ROCURONIUM 50 MG/5 ML VIAL. ONE ×2 (14:44→16:04)
[2021-06-10] MEDS ORDERED: fentaNYL PF VIAL 250 MCG/5 ML VIAL ONE (14:44)
[2021-06-10] MEDS ORDERED: GLYCOPYRROLATE 1 MG/5 ML VIAL. ONE (14:44)
[2021-06-10] MEDS ORDERED: ONDANSETRON PF 4 MG/2 ML VIAL. ONE (14:46)
[2021-06-10] MEDS ORDERED: DEXAMETHASONE SOD PHOS 20 MG/5 ML VIAL. ONE (14:46)
[2021-06-10] MEDS ORDERED: PROPOFOL 10 MG/ML (20ML) VIAL. IV ONE (14:46)
[2021-06-10] MEDS ORDERED: LIDOCAINE 2% PF 5 ML VIAL. ONE (14:46)
--- NOTE | 2021-06-10 15:19 | PDOC2 ---
CONSULT Date of Consult Date of Consult DATE: 06/10/21 TIME: 15:12 Reason for Consult Reason for Consult: incarcerated umbilical hernia Referring Physician Referring Physician: Dr. Ramirez Identification/Chief Complaint Chief Complaint N/V, umbilical pain Source Source: Chart review, Patient History of Present Illness Reason for Visit: 71 yo M with long standing umbilical hernia, developed pain and N/V today and unable to reduce it. Past Medical History Cardiovascular: HTN CENTRAL NERVOUS SYSTEM: CVA Renal/: Chronic renal insuff Past Surgical History Past Surgical History: No pertinent history Family History Family History: Hypertension Social History Quit ALCOHOL: none Drugs: None Lives: with Family Current Problem List Problem List Problems Medical Problems: (1) Small bowel obstruction Status: Acute Current Medications Current Medications Current Medications Ringer's Solution 1,000 ml @ 1,000 mls/hr Q1H IV Last administered on 06/10/21at 11:41; Start 06/10/21 at 11:15; Stop 06/10/21 at 12:14; Status DC Fentanyl Citrate (Fentanyl 2ml Vial) 75 mcg 1X ONCE IVP ; Start 06/10/21 at 11:15; Stop 06/10/21 at 11:16; Status DC Iohexol (Omnipaque 240 Mg/ml) 50 ml 1X ONCE PO ; Start 06/10/21 at 12:00; Stop 06/10/21 at 12:01; Status DC Info (CONTRAST GIVEN -- Rx MONITORING) 1 each PRN DAILY PRN MC SEE COMMENTS; Start 06/10/21 at 12:00; Stop 06/12/21 at 11:59 Cefazolin Sodium/ Dextrose 50 ml @ 100 mls/hr 1X ONCE IV ; Start 06/10/21 at 14:00; Stop 06/10/21 at 14:29; Status DC Fentanyl Citrate (Fentanyl 2ml Vial) 25 mcg PRN Q5MIN PRN IVP MILD PAIN 1-3; Start 06/10/21 at 14:15; Stop 06/10/21 at 22:00 Fentanyl Citrate (Fentanyl 2ml Vial) 50 mcg PRN Q5MIN PRN IVP MODERATE PAIN 4- 6; Start 06/10/21 at 14:15; Stop 06/10/21 at 22:00 Morphine Sulfate (Morphine Sulfate) 1 mg PRN Q10MIN PRN IVP SEVERE PAIN 7-10; Start 06/10/21 at 14:15; Stop 06/10/21 at 22:00 Ringer's Solution 1,000 ml @ 30 mls/hr Q24H IV Last administered on 06/10/21at 14:59; Start 06/10/21 at 14:15; Stop 06/11/21 at 02:14 Hydromorphone HCl (Dilaudid) 0.5 mg PRN Q10MIN PRN IVP SEVERE PAIN 7-10, 2nd CHOICE; Start 06/10/21 at 14:15; Stop 06/10/21 at 20:00 Prochlorperazine Edisylate (Compazine) 5 mg PACU PRN PRN IVP NAUSEA, MRX1; Start 06/10/21 at 14:15; Stop 06/10/21 at 20:00 Ondansetron HCl (Zofran) 4 mg PRN Q8HRS PRN IVP NAUSEA/VOMITING; Start 06/10/21 at 14:15; Stop 06/11/21 at 14:14 Morphine Sulfate (Morphine Sulfate) 4 mg PRN Q2HR PRN IVP PAIN; Start 06/10/21 at 14:15; Stop 06/10/21 at 22:00 Neostigmine [place] (Neostigmine Methylsulfate) 5 mg STK-MED ONCE .ROUTE ; Start 06/10/21 at 14:44; Stop 06/10/21 at 14:44; Status DC Rocuronium [place] (Zemuron) 50 mg STK-MED ONCE .ROUTE ; Start 06/10/21 at 14:44 ; Stop 06/10/21 at 14:44; Status DC Glycopyrrolate (Robinul) 1 mg STK-MED ONCE .ROUTE ; Start 06/10/21 at 14:44; Stop 06/10/21 at 14:44; Status DC Fentanyl Citrate (Fentanyl 5ml Vial) 250 mcg STK-MED ONCE .ROUTE ; Start 06/10/21 at 14:44; Stop 06/10/21 at 14:45; Status DC Propofol (Diprivan) 200 mg STK-MED ONCE IV ; Start 06/10/21 at 14:46; Stop 06/10/21 at 14:46; Status DC Lidocaine HCl (Lidocaine Pf 2% Vial) 5 ml STK-MED ONCE .ROUTE ; Start 06/10/21 at 14:46; Stop 06/10/21 at 14:46; Status DC Dexamethasone Sodium Phosphate (Decadron) 20 mg STK-MED ONCE .ROUTE ; Start 06/10/21 at 14:46; Stop 06/10/21 at 14:46; Status DC Ondansetron HCl (Zofran) 4 mg STK-MED ONCE .ROUTE ; Start 06/10/21 at 14:46; Stop 06/10/21 at 14:46; Status DC Active Scripts Active Reported Carvedilol 25 Mg Tablet 25 Mg PO BIDWMEALS PRN Amlodipine Besylate 10 Mg Tablet 10 Mg PO DAILY Escitalopram Oxalate 10 Mg Tablet 1 Tab PO DAILY Isosorbide Mononitrate Er (Isosorbide Mononitrate) 60 Mg Tab.er.24h 2 Tab PO DAILY Allergies Allergies: Coded Allergies: Penicillins (Verified Allergy, Intermediate, Hives, 10/01/19) ROS Gastrointestinal: Yes Nausea, Yes Vomiting, Yes Abdominal Pain Physical Exam General: Alert, Oriented X3, Cooperative, No acute distress HEENT: Atraumatic Lungs: Normal air movement Abdomen: Soft, Other (obese, non reducible umbilical mass, mild TTP) Extremities: No clubbing, No cyanosis Skin: No rashes, No breakdown Neuro: Normal speech, Sensation intact Psych/Mental Status: Mental status NL, Mood NL Vitals VITALS Vital Signs Date Time Temp Pulse Resp B/P (MAP) Pulse Ox O2 Delivery O2 Flow Rate FiO2 06/10/21 14:54 98.6 84 18 166/91 96 Room Air 98.6 Labs Labs Laboratory Tests Test 06/10/21 11:16 06/10/21 13:50 White Blood Count 14.7 x10^3/uL (4.0-11.0) Red Blood Count 5.39 x10^6/uL (4.30-5.70) Hemoglobin 14.4 g/dL (13.0-17.5) Hematocrit 43.7 % (39.0-53.0) Mean Corpuscular Volume 81 fL (79-100) Mean Corpuscular Hemoglobin 27 pg (25-35) Mean Corpuscular Hemoglobin Concent 33 g/dL (31-37) Red Cell Distribution Width 15.9 % (11.5-14.5) Platelet Count 360 x10^3/uL (140-400) Neutrophils (%) (Auto) 85 % (31-73) Lymphocytes (%) (Auto) 8 % (24-48) Monocytes (%) (Auto) 7 % (0-9) Eosinophils (%) (Auto) 0 % (0-3) Basophils (%) (Auto) 1 % (0-3) Neutrophils # (Auto) 12.5 x10^3/uL (1.8-7.7) Lymphocytes # (Auto) 1.1 x10^3/uL (1.0-4.8) Monocytes # (Auto) 1.0 x10^3/uL (0.0-1.1) Eosinophils # (Auto) 0.0 x10^3/uL (0.0-0.7) Basophils # (Auto) 0.1 x10^3/uL (0.0-0.2) Sodium Level 140 mmol/L (136-145) Potassium Level 3.9 mmol/L (3.5-5.1) Chloride Level 100 mmol/L (98-107) Carbon Dioxide Level 31 mmol/L (21-32) Anion Gap 9 (6-14) Blood Urea Nitrogen 27 mg/dL (8-26) Creatinine 2.1 mg/dL (0.7-1.3) Estimated GFR (Cockcroft-Gault) 31.5 BUN/Creatinine Ratio 13 (6-20) Glucose Level 164 mg/dL (70-99) Calcium Level 9.8 mg/dL (8.5-10.1) Total Bilirubin 1.4 mg/dL (0.2-1.0) Aspartate Amino Transf (AST/SGOT) 24 U/L (15-37) Alanine Aminotransferase (ALT/SGPT) 30 U/L (16-63) Alkaline Phosphatase 79 U/L (46-116) Total Protein 8.6 g/dL (6.4-8.2) Albumin 3.9 g/dL (3.4-5.0) Albumin/Globulin Ratio 0.8 (1.0-1.7) Lipase 213 U/L (73-393) Urine Collection Type Unknown Urine Color Adore Urine Clarity Clear Urine pH 5.5 (<5.0-8.0) Urine Specific [place] 1.025 (1.000-1.030) Urine Protein 100 mg/dL (NEG-TRACE) Urine Glucose (UA) Negative mg/dL (NEG) Urine Ketones (Stick) Trace mg/dL (NEG) Urine Blood Trace (NEG) Urine Nitrite Negative (NEG) Urine Bilirubin Small (NEG) Urine Urobilinogen Dipstick 0.2 mg/dL (0.2 mg/dL) Urine Leukocyte Esterase Trace (NEG) Urine RBC 1-2 /HPF (0-2) Urine WBC 11-20 /HPF (0-4) Urine Bacteria 0 /HPF (0-FEW) Urine Hyaline Casts Many /HPF Urine Mucus Marked /LPF Laboratory Tests Test 06/10/21 11:16 06/10/21 13:50 White Blood Count 14.7 x10^3/uL (4.0-11.0) Red Blood Count 5.39 x10^6/uL (4.30-5.70) Hemoglobin 14.4 g/dL (13.0-17.5) Hematocrit 43.7 % (39.0-53.0) Mean Corpuscular Volume 81 fL (79-100) Mean Corpuscular Hemoglobin 27 pg (25-35) Mean Corpuscular Hemoglobin Concent 33 g/dL (31-37) Red Cell Distribution Width 15.9 % (11.5-14.5) Platelet Count 360 x10^3/uL (140-400) Neutrophils (%) (Auto) 85 % (31-73) Lymphocytes (%) (Auto) 8 % (24-48) Monocytes (%) (Auto) 7 % (0-9) Eosinophils (%) (Auto) 0 % (0-3) Basophils (%) (Auto) 1 % (0-3) Neutrophils # (Auto) 12.5 x10^3/uL (1.8-7.7) Lymphocytes # (Auto) 1.1 x10^3/uL (1.0-4.8) Monocytes # (Auto) 1.0 x10^3/uL (0.0-1.1) Eosinophils # (Auto) 0.0 x10^3/uL (0.0-0.7) Basophils # (Auto) 0.1 x10^3/uL (0.0-0.2) Sodium Level 140 mmol/L (136-145) Potassium Level 3.9 mmol/L (3.5-5.1) Chloride Level 100 mmol/L (98-107) Carbon Dioxide Level 31 mmol/L (21-32) Anion Gap 9 (6-14) Blood Urea Nitrogen 27 mg/dL (8-26) Creatinine 2.1 mg/dL (0.7-1.3) Estimated GFR (Cockcroft-Gault) 31.5 BUN/Creatinine Ratio 13 (6-20) Glucose Level 164 mg/dL (70-99) Calcium Level 9.8 mg/dL (8.5-10.1) Total Bilirubin 1.4 mg/dL (0.2-1.0) Aspartate Amino Transf (AST/SGOT) 24 U/L (15-37) Alanine Aminotransferase (ALT/SGPT) 30 U/L (16-63) Alkaline Phosphatase 79 U/L (46-116) Total Protein 8.6 g/dL (6.4-8.2) Albumin 3.9 g/dL (3.4-5.0) Albumin/Globulin Ratio 0.8 (1.0-1.7) Lipase 213 U/L (73-393) Urine Collection Type Unknown Urine Color Adore Urine Clarity Clear Urine pH 5.5 (<5.0-8.0) Urine Specific [place] 1.025 (1.000-1.030) Urine Protein 100 mg/dL (NEG-TRACE) Urine Glucose (UA) Negative mg/dL (NEG) Urine Ketones (Stick) Trace mg/dL (NEG) Urine Blood Trace (NEG) Urine Nitrite Negative (NEG) Urine Bilirubin Small (NEG) Urine Urobilinogen Dipstick 0.2 mg/dL (0.2 mg/dL) Urine Leukocyte Esterase Trace (NEG) Urine RBC 1-2 /HPF (0-2) Urine WBC 11-20 /HPF (0-4) Urine Bacteria 0 /HPF (0-FEW) Urine Hyaline Casts Many /HPF Urine Mucus Marked /LPF Images Images CT with incarcerated small bowel in umbilical hernia Assessment/Plan Assessment/Plan incarcerated umbilical hernia TO OR for umbilical hernia repair, possible bowel resection R/R/B/A d/w pt. Risks, including, but not limited to: bleeding, infection, damage to surrounding structures, risk of anesthesia, risk of recurrence. He appears to understand, his questions are answered and he elects to proceed. Thank you for allowing consultation with this pleasant patient. JESSICA PRSAAD MD Jun 10, 2021 15:19
[2021-06-10] MEDS ORDERED: BUPIVACAINE-EPI 0.5%-1:200000 MPF 30 ML VIAL. ONE (15:21)
[2021-06-10] MEDS ORDERED: SUCCINYLCHOLINE 200 MG/10 ML VIAL. ONE (15:27)
[2021-06-10] MEDS ORDERED: ePHEDrine PF IN SALINE 50 MG/10 ML SYRINGE. IV ONE (15:40)
--- NOTE | 2021-06-10 16:44 | PDOC4 ---
OPERATIVE NOTE Date: Date: Jun 10, 2021 Pre-Op Diagnosis: Incarcerated umbilical hernia Post-Op Diagnosis: same Procedure Performed: umbilical hernia repair Surgeon: Rafael Prasad Anesthesia Type: GETA plus local Blood Loss: 50 Specimans Obtained: umbilical hernia sac Findings: moderated size umbilical hernia with viable viscera Complications: none Operative Note: After obtaining informed consent, patient was taken to OR, induced under GETA and prepped in the usual fashion. Vertical incision was made overlying umbilical hernia. Hernia sac dissected down to fascia circumstantially. Hernia sac opened sharply. Viscera appeared viable and reduced. Hernia sac amputated with cautery and sent to pathology. Fascia repaired transversely with 0 PDS looped. Umbilical dermis tacked down with 0 vicryl. Skin repaired with 3 0 vicryl and 4 0 monocryl. Dressing placed. Patient tolerated procedure well and sent to PACU in stable condition. All counts correct. Wound class is 2. JESSICA PRASAD MD Jun 10, 2021 16:44
[2021-06-10] MEDS ORDERED: NALOXONE 0.4 MG/ML VIAL. IV PRN (16:45)
[2021-06-10] MEDS ORDERED: 0.9 % SODIUM CHLORIDE 10 ML DISP.SYRIN. IV PRN (16:45)
[2021-06-10] MEDS: IV RINGERS,LACTATED 1000ML 1,000 ML IV SCH (16:45)
[2021-06-10] MEDS ORDERED: IV NORMAL SALINE 1000ML BAG 1,000 ML IV SCH (16:45)
[2021-06-10] MEDS ORDERED: HYDROcodone/APAP 5/325MG 1 TAB TABLET PO PRN (16:45)
[2021-06-10] MEDS ORDERED: LABETALOL 20 MG/4 ML DISP.SYRIN. IVP PRN (17:00)
[2021-06-10] MEDS ORDERED: ENOXAPARIN 40 MG/0.4 ML SYRINGE. SQ SCH (17:00)
[2021-06-10 20:00] VITALS: BP 160/94
[2021-06-10 20:15] VITALS: BP 164/89
[2021-06-10 20:45] VITALS: BP 161/92
[2021-06-10 21:12] VITALS: BP 161/92
[2021-06-10] MEDS: DOCUSATE SODIUM 100 MG CAPSULE. PO SCH (21:12)
[2021-06-10 22:04] VITALS: BP 164/86
[2021-06-11] MEDS: IV RINGERS,LACTATED 1000ML 1,000 ML IV SCH (02:45)
[2021-06-11 03:30] VITALS: BP 160/73
[2021-06-11] MEDS: DOCUSATE SODIUM 100 MG CAPSULE. PO SCH (08:03)
[2021-06-11] MEDS ORDERED: CARVEDILOL 12.5 MG TABLET. PO SCH (09:30)
[2021-06-11] MEDS ORDERED: CITALOPRAM 20 MG TABLET. PO SCH (10:00)
[2021-06-11] MEDS ORDERED: ISOSORBIDE MONONITRATE ER 30 MG TAB.ER.24H PO SCH (10:00)
[2021-06-11 10:34] VITALS: BP 160/73
--- NOTE | 2021-06-11 10:45 | SSS ---
ADMIT DATE: 06/11/2021 23-HOUR SUMMARY HOSPITAL SUMMARY: The patient came in with abdominal pain and evidence of an incarcerated umbilical hernia per CT scan. Laboratory studies showed a creatinine of 2.1, which is slightly above his normal baseline of around 1.7 and 1.8 and the other labs are unremarkable. COVID serology was negative. He was taken to surgery by Dr. Morocho and repair of the hernia was done. He has been drinking liquids and is feeling better and may be discharged later today if Dr. Morocho is comfortable with his progress. FINAL DIAGNOSES: 1. Incarcerated umbilical hernia. 2. Chronic kidney disease 3, stable. 3. Hypertension. OPERATIONS, PROCEDURES: Repair of incarcerated umbilical hernia. COMPLICATIONS: None. CONSULTATION: Dr. Morocho. DISPOSITION: Home meds remain the same. Pain meds per Dr. Morocho. Low-sodium diet as per his hypertension. The patient takes isosorbide, but denies any history of cardiac disease and will explore the use of his current meds in the office in 1 week as well as follow up on his renal status. LEOBARDO/INDIGO DR: José Manuel TID: [id number]
--- NOTE | 2021-06-11 11:41 | PDOC ---
SURGICAL PROGRESS NOTE DATE: 06/11/21 TIME: 11:40 Subjective Pt reports doing well, pain controlled, denies N/V Vital Signs Vital Signs Date Time Temp Pulse Resp B/P (MAP) Pulse Ox O2 Delivery O2 Flow Rate FiO2 06/11/21 10:34 85 160/73 06/11/21 03:30 98.5 20 91 Room Air 2.0 98.5 I&O Intake and Output 06/11/21 07:00 Intake Total 1300 ml Output Total 1110 ml Balance 190 ml Intake Oral 250 ml IV Total 1050 ml Output Urine Total 1100 ml Estimated Blood Loss 10 ml General: Alert, Oriented X3, Cooperative, No acute distress Abdomen: Soft, No tenderness, Other (dressing intact) Labs Laboratory Tests Test 06/10/21 11:16 06/10/21 13:50 White Blood Count 14.7 x10^3/uL (4.0-11.0) Red Blood Count 5.39 x10^6/uL (4.30-5.70) Hemoglobin 14.4 g/dL (13.0-17.5) Hematocrit 43.7 % (39.0-53.0) Mean Corpuscular Volume 81 fL (79-100) Mean Corpuscular Hemoglobin 27 pg (25-35) Mean Corpuscular Hemoglobin Concent 33 g/dL (31-37) Red Cell Distribution Width 15.9 % (11.5-14.5) Platelet Count 360 x10^3/uL (140-400) Neutrophils (%) (Auto) 85 % (31-73) Lymphocytes (%) (Auto) 8 % (24-48) Monocytes (%) (Auto) 7 % (0-9) Eosinophils (%) (Auto) 0 % (0-3) Basophils (%) (Auto) 1 % (0-3) Neutrophils # (Auto) 12.5 x10^3/uL (1.8-7.7) Lymphocytes # (Auto) 1.1 x10^3/uL (1.0-4.8) Monocytes # (Auto) 1.0 x10^3/uL (0.0-1.1) Eosinophils # (Auto) 0.0 x10^3/uL (0.0-0.7) Basophils # (Auto) 0.1 x10^3/uL (0.0-0.2) Sodium Level 140 mmol/L (136-145) Potassium Level 3.9 mmol/L (3.5-5.1) Chloride Level 100 mmol/L (98-107) Carbon Dioxide Level 31 mmol/L (21-32) Anion Gap 9 (6-14) Blood Urea Nitrogen 27 mg/dL (8-26) Creatinine 2.1 mg/dL (0.7-1.3) Estimated GFR (Cockcroft-Gault) 31.5 BUN/Creatinine Ratio 13 (6-20) Glucose Level 164 mg/dL (70-99) Calcium Level 9.8 mg/dL (8.5-10.1) Total Bilirubin 1.4 mg/dL (0.2-1.0) Aspartate Amino Transf (AST/SGOT) 24 U/L (15-37) Alanine Aminotransferase (ALT/SGPT) 30 U/L (16-63) Alkaline Phosphatase 79 U/L (46-116) Total Protein 8.6 g/dL (6.4-8.2) Albumin 3.9 g/dL (3.4-5.0) Albumin/Globulin Ratio 0.8 (1.0-1.7) Lipase 213 U/L (73-393) Urine Collection Type Unknown Urine Color Adore Urine Clarity Clear Urine pH 5.5 (<5.0-8.0) Urine Specific [place] 1.025 (1.000-1.030) Urine Protein 100 mg/dL (NEG-TRACE) Urine Glucose (UA) Negative mg/dL (NEG) Urine Ketones (Stick) Trace mg/dL (NEG) Urine Blood Trace (NEG) Urine Nitrite Negative (NEG) Urine Bilirubin Small (NEG) Urine Urobilinogen Dipstick 0.2 mg/dL (0.2 mg/dL) Urine Leukocyte Esterase Trace (NEG) Urine RBC 1-2 /HPF (0-2) Urine WBC 11-20 /HPF (0-4) Urine Bacteria 0 /HPF (0-FEW) Urine Hyaline Casts Many /HPF Urine Mucus Marked /LPF Laboratory Tests Test 06/10/21 13:50 Urine Collection Type Unknown Urine Color Adore Urine Clarity Clear Urine pH 5.5 (<5.0-8.0) Urine Specific [place] 1.025 (1.000-1.030) Urine Protein 100 mg/dL (NEG-TRACE) Urine Glucose (UA) Negative mg/dL (NEG) Urine Ketones (Stick) Trace mg/dL (NEG) Urine Blood Trace (NEG) Urine Nitrite Negative (NEG) Urine Bilirubin Small (NEG) Urine Urobilinogen Dipstick 0.2 mg/dL (0.2 mg/dL) Urine Leukocyte Esterase Trace (NEG) Urine RBC 1-2 /HPF (0-2) Urine WBC 11-20 /HPF (0-4) Urine Bacteria 0 /HPF (0-FEW) Urine Hyaline Casts Many /HPF Urine Mucus Marked /LPF Problem List Problems Medical Problems: (1) Small bowel obstruction Status: Acute Assessment/Plan s/p umb hernia repair ADAT and OK to d/c home. F/u in two weeks. Justicifation of Admission Dx: Justifications for Admission: Justification of Admission Dx: N/A JESSICA PRASAD MD Jun 11, 2021 11:41
--- NOTE | 2021-06-11 11:50 | NUR ---
Patient discharged home with self care. Patient has had no pain medication today and patient insisted on driving home. Patient discharged and taken to vehicle on parking lot. No questions at this time, patient stated doctors answered all questions.
== END 2021-06-11 11:54 | disposition home or self-care (01) | DRG 355 ==
LOC: ER 10:38 → 4 NORTH 13:57
PROVIDERS: ADMIT Family Medicine; ATTEND Family Medicine
PROC: 0WQF0ZZ Repair Abdominal Wall, Open Approach (ICD-10-PCS; principal; 2021-06-10 16:15)
DX: K42.0 Umbilical hernia with obstruction, without gangrene (principal); I12.9 Hypertensive chronic kidney disease with stage 1 through stage 4 chronic kidney disease, or unspecified chronic kidney disease; K44.9 Diaphragmatic hernia without obstruction or gangrene; K76.0 Fatty (change of) liver, not elsewhere classified; K80.20 Calculus of gallbladder without cholecystitis without obstruction; N18.30 Chronic kidney disease, stage 3 unspecified; N28.1 Cyst of kidney, acquired; Z82.49 Family history of ischemic heart disease and other diseases of the circulatory system; Z86.73 Personal history of transient ischemic attack (TIA), and cerebral infarction without residual deficits; Z87.891 Personal history of nicotine dependence; Z88.0 Allergy status to penicillin
CPT/HCPCS: 36415; 74176; 80053; 81001; 83690; 85025; 87086; A4930; J0330; J0690; J1100; J2405; J2704; J2710; J3010; J3490; J7030; J7120; 99285-25; G0378

== ENCOUNTER 2021-11-03 17:33 | Emergency (ER) | payer MEDICARE ==
[~2021-11-03] VITALS: Ht 170.2 cm; Wt 119.0 kg
[2021-11-03 18:20] VITALS: BP 205/116
[2021-11-03] MEDS ORDERED: LIDOCAINE 1%/EPI 1:100,000 20 ML VIAL. INJ ONE (18:45)
[2021-11-03] MEDS ORDERED: DIPHTH,PERTUSS(ACELL),TET TOX 0.5 ML DISP.SYRIN. VAX IM ONE (18:45)
--- NOTE | 2021-11-03 18:59 | RAD ---
CT HEAD AND C-SPINE WO dated 11/03/2021 6:26 PM. Comparison: None. Clinical Indication: Reason: mechanical fall / Spl. Instructions: / History: HEAD AND NECK PAIN Technical factors: Contiguous 5 mm axial images of the head were obtained from the skullbase to the v ertex. No contrast was administered. In addition, 3 mm axial images of the cervical spine were acquir ed with thin cut coronal and sagittal reconstructions. One or more of the following individualized dose reduction techniques were utilized for this examinat ion: 1. Automated exposure control 2. Adjustment of the mA and/or kV according to patient size 3. Use of iterative reconstruction technique Findings head: Ventricles and sulci are mildly prominent for age. No midline shift or mass effect. Mild patchy low d ensity in the deep/subcortical periventricular white matter. No hemorrhage or extra axial collection. Small remote lacunar infarcts of the right landa radiata and centrum semiovale. There is also proba ble remote lacunar infarct of the left thalamus. Posterior fossa and brainstem unremarkable. Visualized paranasal sinuses and mastoid air cells are clear. No apparent calvarial abnormality. Soft tissue swelling over the frontal bone region. IMPRESSION HEAD: 1. No evidence of acute intracranial hemorrhage or mass. 2. Mild to moderate chronic small vessel ischemic changes and atrophy. There are multiple small remot e lacunar infarcts. Findings cervical spine: Images were acquired from the skull base to T1. There is straightening of the normal cervical lordosi s, otherwise sagittal alignment is anatomic. Vertebral body heights are maintained. No prevertebral s oft tissue swelling. Posterior elements are intact. No fractures are identified. Mild endplate hypertrophic changes throughout. Mild multilevel uncovertebral spurring and facet arthr opathy. No apparent focal disc herniation. Bony canal is adequate. There is multilevel mild foraminal narrowing. Visualized soft tissue structures are unremarkable. IMPRESSION CERVICAL SPINE: 1. No evidence of fracture or malalignment. 2. Mild multilevel spondylosis Electronically signed by: Wisam Dhillon MD (11/03/2021 6:56 PM) [facility]
--- NOTE | 2021-11-03 19:30 | PHYS DOC ---
Past Medical History Additional Past Medical Histor: prior brain bleeds Additional Past Surgical Histo: umbilical hernia repair Smoking Status: Never Smoker Alcohol Use: None Drug Use: None General Adult EDM: Chief Complaint: MECHANICAL FALL HPI: HPI: Patient is a 71 year old male who presents with multiple facial lacerations status post mechanical fall at home. Patient states he was outside on his back deck carrying some items outside, when the step that he attempted to step on broke. Patient reports he fell forward and was unable to catch himself, as he was holding items in his hands. He says the majority of his body weight fell onto his left shoulder, and he sustained lacerations on his face. He reports associated left shoulder pain on movement. Patient states he attempted to stop the bleeding at home with pressure and "bleed stop." Patient originally was not going to present to the ER, but he could not get the lacerations on his face to stop bleeding. Patient denies use of blood thinners. He denies any loss of consciousness, head pain, neck pain, nausea/vomiting, lightheadedness, dizziness. Review of Systems: Review of Systems: Constitutional: Denies fever, chills or generalized weakness Eyes: Denies change in visual acuity, visual field deficits or discharge HENT: Denies ear pain, nasal congestion or sore throat Respiratory: Denies cough or shortness of breath Cardiovascular: Denies chest pain, palpitations or edema GI: Denies abdominal pain, nausea, vomiting, bloody stools or diarrhea : Denies dysuria or hematuria Musculoskeletal: See HPI Integument: See HPI Neurologic: See HPI Heart Score: C/O Chest Pain: No Current Medications: Current Medications Medications (Trade) Dose Ordered Sig/Thelma Start Time Stop Time Status Last Admin Dose Admin Diphtheria/ Tetanus/Acell Pertussis (Boostrix) 0.5 ml ONCE ONCE 11/03/21 18:45 11/03/21 18:46 DC 11/03/21 18:52 0.5 ML Lidocaine/ Epinephrine (LIDOCAINE 1%-EPI 1:100,000 Multi-Dose) 20 ml 1X ONCE 11/03/21 18:45 11/03/21 18:46 DC 11/03/21 18:50 20 ML Allergies: Allergies: Allergies Coded Allergies Type Severity Reaction Last Updated Verified Penicillins Allergy Intermediate Hives 10/01/19 Yes Physical Exam: PE: Constitutional: Well developed, well nourished, no acute distress, non-toxic appearance. HENT: Normocephalic, no palpable skull or facial fractures, bilateral external ears normal, oropharynx moist, no oral exudates, nose without deformity or epistaxis. Lacerations noted between the eyebrows (2 cm curved shape with left- sided extension making a horseshoe shape), on the bridge of the nose approximately 1.5 cm, and on the lower lip diagonally crossing vermilion border approximately 2 cm. Eyes: PERRL, EOMI, conjunctiva normal, no discharge. Neck: Normal range of motion, no tenderness, supple, no stridor. Skin: Warm, dry, no erythema, no rash. See above for facial lacerations. Back: No tenderness, no CVA tenderness. Extremities: Left shoulder mild tenderness to palpation anteriorly, passive range of motion intact, active range of motion intact though painful. Extremities otherwise no tenderness, no cyanosis, no clubbing, ROM intact, no edema. No obvious deformity in extremities x4. Neurologic: Alert and oriented x4, steady and symmetrical upright gait, no focal deficits noted. Current Patient Data: Vital Signs: Vital Signs Date Time Temp Pulse Resp B/P (MAP) Pulse Ox O2 Delivery O2 Flow Rate FiO2 11/03/21 18:20 98.0 96 18 205/116 (145) 98 Room Air 98.0 11/03/21 18:08 98.0 97 22 201/116 (144) 98 Room Air 98.0 11/03/21 17:35 98.0 81 20 196/112 (140) 98 Room Air 98.0 Radiology/Procedures: Radiology/Procedures: PROCEDURE: CT HEAD AND CERVICAL SPINE WO CT HEAD AND C-SPINE WO dated 11/03/2021 6:26 PM. Comparison: None. Clinical Indication: Reason: mechanical fall / Spl. Instructions: / History: HEAD AND NECK PAIN Technical factors: Contiguous 5 mm axial images of the head were obtained from the skullbase to the vertex. No contrast was administered. In addition, 3 mm axial images of the cervical spine were acquired with thin cut coronal and sagittal reconstructions. One or more of the following individualized dose reduction techniques were utilized for this examination: 1. Automated exposure control 2. Adjustment of the mA and/or kV according to patient size 3. Use of iterative reconstruction technique Findings head: Ventricles and sulci are mildly prominent for age. No midline shift or mass effect. Mild patchy low density in the deep/subcortical periventricular white matter. No hemorrhage or extra axial collection. Small remote lacunar infarcts of the right landa radiata and centrum semiovale. There is also probable remote lacunar infarct of the left thalamus. Posterior fossa and brainstem unremarkable. Visualized paranasal sinuses and mastoid air cells are clear. No apparent calvarial abnormality. Soft tissue swelling over the frontal bone region. IMPRESSION HEAD: 1. No evidence of acute intracranial hemorrhage or mass. 2. Mild to moderate chronic small vessel ischemic changes and atrophy. There are multiple small remote lacunar infarcts. Findings cervical spine: Images were acquired from the skull base to T1. There is straightening of the normal cervical lordosis, otherwise sagittal alignment is anatomic. Vertebral body heights are maintained. No prevertebral soft tissue swelling. Posterior elements are intact. No fractures are identified. Mild endplate hypertrophic changes throughout. Mild multilevel uncovertebral spurring and facet arthropathy. No apparent focal disc herniation. Bony canal is adequate. There is multilevel mild foraminal narrowing. Visualized soft tissue structures are unremarkable. IMPRESSION CERVICAL SPINE: 1. No evidence of fracture or malalignment. 2. Mild multilevel spondylosis Electronically signed by: Wisam Dhillon MD (11/03/2021 6:56 PM) [facility] [place] & Med Decision Making: Course & Med Decision Making Pertinent Labs and Imaging studies reviewed. (See chart for details) Patient is a 71-year-old male who presents to the emergency department with chief complaint of facial lacerations after sustaining mechanical fall at home. Work-up will include CT head and neck without contrast. In discussing plan in the emergency department with the patient, he is greatly opposed to CT imaging. He states that he does not want to be financially responsible for these imaging studies, as he cannot afford it. Patient states he has had CTs in the emergency department in the past, which were very expensive. He states that he does not have any symptoms, does not wish to have CT imaging performed. I had a long discussion with him about the risk and benefit of performing CT imaging at this time. Originally, he requested to sign out AGAINST MEDICAL ADVICE. Nursing staff was able to go back in and speak to him, at which time he agreed to CT imaging. In general, patient seems to be reluctant to medical intervention that he believes is unnecessary and unrelated to his lacerations. When x-ray technologist came to the room to take him to get the CT images, he once again refused. I had another discussion with him and answered further questions. I explained to him that while he may not be having symptoms now, because of his age she is at higher risk for certain types of brain bleeds, which could cause him great difficulty, including permanent disability or , in the future. Patient did agree to CT imaging at that time. CT imaging negative for acute injury. Patient tolerated laceration repair very well. He was given return precautions and wound care instruction. Patient is instructed to have his sutures removed in a period of 5 to 7 days. Additionally, I recommended that he follow-up with his primary care doctor, Dr. Zheng, regarding any persistent shoulder pain that he may experience. Additionally, I advised that he speak to Dr. Zheng about his blood pressure. Patient understands and is agreeable to discharge plan. Dragon Disclaimer: Dragon Disclaimer: This electronic medical record was generated, in whole or in part, using a voice recognition dictation system. Laceration Repair Lac Repair Indication: Facial lacerations Procedure: The patient was placed in the appropriate position and anesthesia around the lacerations were in total approximately 4 cc 1% lidocaine with epinephrine. The area was then cleansed with Betadine solution and irrigated with sterile saline. The laceration between the eyebrows was closed with 3 simple interrupted 5-0 nylon sutures. The laceration on the bridge of the nose was also closed with 3 simple interrupted 5-0 nylon sutures. Laceration to the lower lip was closed with 4 simple interrupted 6-0 nylon sutures, beginning at the vermilion border. Total repaired wound length: 2 cm rounded laceration between the eyebrows, 1.5 cm laceration to the bridge of the nose, 2 cm to the lower lip. Other Items: The patient tolerated the procedure very well. Complications: None. Departure Departure Impression: Primary Impression: Fall from standing Qualified Codes: W19.XXXA - Unspecified fall, initial encounter Additional Impressions: Facial laceration Qualified Codes: S01.81XA - Laceration without foreign body of other part of head, initial encounter Laceration of vermilion border of lower lip without complication Qualified Codes: S01.511A - Laceration without foreign body of lip, initial encounter Elevated blood pressure reading Disposition: HOME / SELF CARE / HOMELESS Condition: STABLE Referrals: TODD ZHENG MD (PCP) Patient Instructions: Facial Laceration, [id number], RICE - Routine Care for Injuries, [id number], Sutured Wound Care, [id number] Additional Instructions: EMERGENCY DEPARTMENT GENERAL DISCHARGE INSTRUCTIONS Thank you for coming to [facility] Emergency Department (ED) today and trusting us with you care. We trust that you had a positive experience in our Emergency Department. If you wish to speak to the department management, you may call the director at . YOUR FOLLOW UP INSTRUCTIONS ARE FOLLOWS: 1. Follow up with your primary care doctor. If you do not have a primary doctor, please ask for a resource list of physicians or clinics that may be able to assist you with follow up care. 2. The emergency provider has interpreted your imaging studies, if any were ordered. The radiology family support specialist also reviewed them. If there is a change in the findings, you will be notified in 48 hours when at all possible. 3. If a lab test or culture has been done, your results will be reviewed and you will be notified if you need a change in treatment. 4. Follow instructions verbalized to you and refer to the printouts if needed. Stitches can come out in 5-7 days. ADDITIONAL INSTRUCTIONS AND INFORMATION: 1. Your care today has been supervised by a physician who is specially trained in emergency care. Many problems require more than one evaluation for a complete diagnosis and treatment. We recommend that you schedule your follow up appointment as recommended to ensure complete treatment of you illness or injury. If you are unable to obtain follow up care and continue to have a problem, or if your condition worsens, we recommend that you return to the ED. 2. We are not able to safely determine your condition over the phone nor are we able to give sound medical advice over the phone. For these safety reasons, if you call for medical advice we will ask you to come to the ED for further evalua tion. 3. If you have any questions regarding these discharge instructions please call the ED at . SAFETY INFORMATION: In the interest of safety, wellness, and injury prevention; we encourage you to wear your seat belt, if you smoke; quite smoking, and we encourage family to use a protective helmet for bicycling and other sporting events that present an increased risk for head injury. IF YOUR SYMPTOMS WORSEN OR NEW SYMPTOMS DEVELOP, OR YOU HAVE CONCERNS ABOUT YOUR CONDITION; OR IF YOUR CONDITION WORSENS WHILE YOU ARE WAITING FOR YOUR FOLLOW UP APPOINTMENT; EITHER CONTACT YOUR PRIMARY CARE DOCTOR, THE PHYSICIAN WHOSE NAME AND NUMBER YOU WERE GIVEN, OR RETURN TO THE ED IMMEDIATELY. MALCOLM BENTLEY Nov 03, 2021 19:30
[2021-11-03] MEDS ORDERED: BACITRACIN TOPICAL OINT PACKET. TP ONE (20:00)
== END 2021-11-03 19:54 | disposition home or self-care (01) ==
LOC: ER 17:33
DX: S01.511A Laceration without foreign body of lip, initial encounter (principal); S01.81XA Laceration without foreign body of other part of head, initial encounter; R51.9 Headache, unspecified; M54.2 Cervicalgia; M25.512 Pain in left shoulder; W18.39XA Other fall on same level, initial encounter; Y93.89 Activity, other specified; Y92.89 Other specified places as the place of occurrence of the external cause; Y99.8 Other external cause status
CPT/HCPCS: 12014; 40650; 70450; 72125; 90471; 90715; 99284; J3490